=== PATIENT | female | born 1990 | race Caucasian/White ===

== ENCOUNTER → 2018-11-20 | Outpatient (REF) | payer OTHER | LOC: M SFHCLERA 20:08 | PROVIDERS: ATTEND Physician Assistant | DX: N39.0 Urinary tract infection, site not specified (principal) ==

== ENCOUNTER → 2019-08-27 | Outpatient (CLI) | payer OTHER ==
--- NOTE | 2019-08-27 10:09 | REP ---
ULTRASOUND LEFT LOWER LEG SOFT TISSUES: Real-time sonographic evaluation of the left lower leg soft tissues performed. Reportedly, there is a palpable lump anteromedially. There is sonographic evidence of cystic or solid mass at that location. Recommend MRI to further evaluate if clinically indicated. Electronically Signed by Alexsander Gonzalez MD 08/27/2019 04:35 P
== END ==
LOC: M RAD 08:50
PROVIDERS: ATTEND Physician Assistant
DX: D17.9 Benign lipomatous neoplasm, unspecified (principal)

== ENCOUNTER → 2019-09-10 | Outpatient (CLI) | payer OTHER ==
--- NOTE | 2019-09-10 12:50 | REP ---
MRI LEFT LOWER LEG: TECHNIQUE: Multiple sequences obtained in the axial, coronal, and sagittal planes without the use of the intravenous contrast material. Reportedly there is a palpable lump medially in the mid to lower aspect of the lower leg. The area is marked on the skin. There is no soft tissue mass identified. No cystic or solid nodule is seen. There is abnormal signal in the underlying musculature. The tibia and fibula demonstrate normal bone marrow signal. There is no bone marrow edema or occult fracture. IMPRESSION: Negative MRI left lower leg. No evidence of cystic or solid soft tissue mass. Electronically Signed by Alexsander Gonzalez MD 09/14/2019 08:48 A
== END ==
LOC: M PLARAD 10:02
PROVIDERS: ATTEND Physician Assistant
DX: D48.1 Neoplasm of uncertain behavior of connective and other soft tissue (principal)

== ENCOUNTER 2020-09-18 06:55 | Emergency (ER) | payer OTHER ==
[~2020-09-18] VITALS: Ht 167.6 cm; Wt 58.8 kg
[2020-09-18] MEDS ORDERED: LEVO125T4 PO (07:00)
[2020-09-18 07:36] LABS: BASO # 0.1 10^3/uL (0.0-0.2); BASO % 0.8 % (0.0-1.0); EOS # 0.1 10^3/uL (0.0-0.5); EOS % 1.3 % (0.0-3.0); HEMATOCRIT 43.8 % (36.0-47.0); HEMOGLOBIN 14.5 g/dl (12.0-15.5); LYMPH # 2.3 10^3/uL (1.5-5.0); MEAN CORPUSCULAR HEMOGLOBIN 29.7 pg (27.0-33.0); MEAN CORPUSCULAR HGB CONC 33.1 g/dl (32.0-36.5); MEAN CORPUSCULAR VOLUME 89.6 fl (80.0-96.0); MONO # 0.4 10^3/uL (0.0-0.8); MONO % 6.8 % (0.0-5.0); NEUTROPHILS # 3.2 10^3/uL (1.5-8.5); NEUTROPHILS % 52.8 % (36.0-66.0); PLATELET COUNT, AUTOMATED 275 10^3/uL (150-450); RED BLOOD COUNT 4.89 10^6/uL (4.00-5.40)
[2020-09-18 08:00] LABS: ALBUMIN 3.8 GM/DL (3.2-5.2); ALT/SGPT 28 U/L (12-78); BILIRUBIN,DIRECT 0.2 MG/DL (0.0-0.2); BILIRUBIN,TOTAL 0.5 MG/DL (0.2-1.0); BLOOD UREA NITROGEN 9 MG/DL (7-18); CALCIUM LEVEL 9.1 MG/DL (8.5-10.1); CARBON DIOXIDE LEVEL 26 MEQ/L (21-32); CHLORIDE LEVEL 111 MEQ/L (98-107); CREATININE FOR GFR 0.93 MG/DL (0.55-1.30); GLOMERULAR FILTRATION RATE > 60.0 (>60); GLUCOSE, FASTING 95 MG/DL (70-100); LIPASE 144 U/L (73-393); POTASSIUM SERUM 3.9 MEQ/L (3.5-5.1); SODIUM LEVEL 141 MEQ/L (136-145)
--- NOTE | 2020-09-18 08:24 | REPVR ---
PROCEDURE INFORMATION: Exam: US Abdomen, Limited; Right Upper Quadrant Exam date and time: 09/18/2020 8:11 AM Age: 29 years old Clinical indication: Abdominal pain; Additional info: Ruq pain, sudden onset TECHNIQUE: Imaging protocol: US abdomen. Real time ultrasound with image documentation. Limited exam focused on the right upper quadrant. COMPARISON: No relevant prior studies available. FINDINGS: Liver: Normal. No masses. Gallbladder: Normal. No gallstones. There is no gallbladder wall thickening. Common bile duct: Normal. No stones. No dilation. Pancreas: Visualized pancreas is unremarkable. Right kidney: Normal. No mass. No hydronephrosis. IMPRESSION: No acute findings. Electronically signed by: Fidencio Adamson On 09/18/2020 08:23:59 AM
[2020-09-18] MEDS ORDERED: SIME180C PO (09:00)
[2020-09-18] MEDS ORDERED: ONDA4TAB6 PO (09:00)
[2020-09-18 09:03] VITALS: BP 102/61
== END 2020-09-18 09:08 | disposition home or self-care (01) ==
LOC: M ED 06:55
DX: R10.11 Right upper quadrant pain (principal); R11.0 Nausea; E03.9 Hypothyroidism, unspecified

== ENCOUNTER → 2021-05-07 | Outpatient (CLI) | payer OTHER ==
[~2021-05-07] MED LIST: LEVO125T4 PO; ONDA4TAB6 PO; SIME180C25 PO
[2021-05-07 10:18] LABS: HEMATOCRIT 45.3 % (36.0-47.0); HEMOGLOBIN 14.9 g/dl (12.0-15.5); MEAN CORPUSCULAR HEMOGLOBIN 29.4 pg (27.0-33.0); MEAN CORPUSCULAR HGB CONC 32.9 g/dl (32.0-36.5); MEAN CORPUSCULAR VOLUME 89.5 fl (80.0-96.0); PLATELET COUNT, AUTOMATED 276 10^3/uL (150-450); RED BLOOD COUNT 5.06 10^6/uL (4.00-5.40); WHITE BLOOD COUNT 4.7 10^3/uL (4.0-10.0)
[2021-05-07 10:56] LABS: FREE T4 1.16 NG/DL (0.76-1.46); THYROID STIMULATING HORMONE 1.55 uIU/ML (0.358-3.740)
== END ==
LOC: M PLALAB 08:36
PROVIDERS: ATTEND Specialist
DX: E03.9 Hypothyroidism, unspecified (principal)

== ENCOUNTER → 2021-08-16 | Outpatient (CLI) | payer OTHER ==
[2021-08-16 14:12] LABS: FREE T4 1.03 NG/DL (0.76-1.46); THYROID STIMULATING HORMONE 1.66 uIU/ML (0.358-3.740)
== END ==
LOC: M PLALAB 10:26
PROVIDERS: ATTEND Nurse Practitioner Family
DX: E03.9 Hypothyroidism, unspecified (principal)